=== PATIENT | male | born 1970 | race African-American/Black ===

== ENCOUNTER 2024-05-17 16:35 | Inpatient (IN) | payer MEDICAID ==
[~2024-05-17] VITALS: Ht 167.6 cm; Wt 65.7 kg
[2024-05-17] MEDS ORDERED: LORazepam 2 MG TABLET PO PRN (17:15)
[2024-05-17] MEDS ORDERED: ZOLPIDEM TARTRATE 10 MG TABLET PO PRN (17:15)
[2024-05-17] MEDS ORDERED: HALOPERIDOL 5 MG TABLET PO PRN (17:15)
[2024-05-17 17:58] VITALS: BP 133/76; PULSE 74; RESP 18; TEMP 97; O2SAT 98
[2024-05-17 20:07] VITALS: BP 153/78; PULSE 86; RESP 17; TEMP 98.2; O2SAT 100
[2024-05-18 08:26] LABS: BASOPHILS % (AUTO) 0.5 % (0.0-2.0); EOSINOPHILS % (AUTO) 2.3 % (1.0-6.0); HEMATOCRIT 39.9 % (41-53); HEMOGLOBIN 12.6 g/dL (13.5-17.5); MEAN CORPUSCULAR HEMOGLOBIN 23.5 pg (26.0-34.0); MEAN CORPUSCULAR HGB CONC 31.5 G/dL (31.0-37.0); MEAN CORPUSCULAR VOLUME 75 fL (80-100); MONOCYTES # (AUTO) 0.6 K/uL (0.1-1.0); MONOCYTES % (AUTO) 8.9 % (2.0-9.0); NEUTROPHILS # (AUTO) 3.7 K/uL (1.8-7.7); NEUTROPHILS % (AUTO) 57.3 % (40.0-70.0); PLATELET COUNT (AUTO) 169 K/uL (150-450); RED BLOOD CELL COUNT(AUTO) 5.35 MIL/uL (4.50-5.90); RED CELL DISTRIBUTION WIDTH 14.1 % (11.5-14.5); WHITE BLOOD COUNT (AUTO) 6.5 K/uL (4.5-11.0)
[2024-05-18 08:31] VITALS: BP 125/67; PULSE 71; RESP 18; TEMP 98.3; O2SAT 98
[2024-05-18 08:45] LABS: HEMOGLOBIN A1C 5.9 % (3.8-5.6)
[2024-05-18 09:09] LABS: RBC MORPHOLOGY COMMENT ABNORMAL RBC MORPH
[2024-05-18 09:12] LABS: ALANINE AMINOTRANSFERASE 16 U/L (12-78); ALBUMIN 3.3 g/dL (3.4-5.0); ALKALINE PHOSPHATASE 50 U/L (46-116); ANION GAP 5 mmol/L (8-16); ASPARTATE AMINOTRANSFERASE 24 U/L (15-37); BILIRUBIN,TOTAL 0.9 mg/dL (0.1-1.0); CARBON DIOXIDE 33 mmol/L (22-29); CHLORIDE 104 mmol/L (98-107); CHOLESTEROL 197 mg/dL (131-200); FREE T4 (FREE THYROXINE) 0.75 ng/dL (0.76-1.46); GLOMERULAR FILTR. RATE CALC > 60 mL/min (>60); GLUCOSE,RANDOM 97 mg/dL (70-110); HDL CHOLESTEROL 66 mg/dL (40-60); LDL CHOL (CALC.) 113 mg/dL (0-130); SODIUM SERUM 142 mmol/L (136-145); THYROID STIMULATING HORMONE 0.62 uIU/mL (0.36-3.74); TOTAL PROTEIN, SERUM 6.6 g/dL (6.4-8.2); TRIGLYCERIDES 90 mg/dL (15-150); UREA NITROGEN, BLOOD 14 mg/dL (7-18)
[2024-05-18] MEDS: LITHIUM CARBONATE 300 MG CAPSULE PO SCH (16:33)
[2024-05-18] MEDS: DIVALPROEX SODIUM 500 MG DR TABLET PO SCH (16:33)
[2024-05-18] MEDS: RisperiDONE 1 MG TABLET PO SCH (16:33)
[2024-05-18] MEDS ORDERED: ALBUTEROL SULFATE HFA 90 MCG/PUFF 8 GM INHALER IH PRN (17:15)
[2024-05-18] MEDS ORDERED: OMEPRAZOLE 20 MG CAPSULE PO PRN (17:15)
[2024-05-18] MEDS ORDERED: ONDANSETRON HCL 4 MG TABLET PO PRN (17:15)
[2024-05-18] MEDS ORDERED: LOPERAMIDE HCL 2 MG CAPSULE PO PRN (17:15)
[2024-05-18] MEDS ORDERED: DOCUSATE SODIUM 100 MG CAPSULE PO PRN (17:15)
[2024-05-18] MEDS ORDERED: MAG HYDROX/ALUMINUM HYD/SIMETH ES 30 ML SUSPENSION UDCUP PO PRN (17:15)
[2024-05-18] MEDS ORDERED: CloNIDine HCL 0.1 MG TABLET PO PRN (17:15)
[2024-05-18] MEDS ORDERED: MAGNESIUM HYDROXIDE SUSPENSION 30 ML UDCUP PO PRN (17:15)
[2024-05-18] MEDS ORDERED: BACITRACIN 28 GM OINTMENT TP PRN (17:15)
[2024-05-18] MEDS ORDERED: IBUPROFEN 600 MG TABLET PO PRN (17:15)
[2024-05-18] MEDS ORDERED: PETROLATUM,WHITE 28 GM JELLY TP PRN (17:15)
[2024-05-18] MEDS ORDERED: BENZOCAINE/MENTHOL LOZENGE PO PRN (17:15)
[2024-05-18 20:22] VITALS: BP 128/86; PULSE 71; RESP 16; TEMP 98.3; O2SAT 100
[2024-05-19 08:12] VITALS: BP 107/59; PULSE 62; RESP 18; TEMP 97.8; O2SAT 96
[2024-05-19] MEDS: TraZODone HCL 100 MG TABLET PO SCH (20:15)
[2024-05-19 20:33] VITALS: BP 117/67; PULSE 58; RESP 16; TEMP 97; O2SAT 96
[2024-05-20 08:32] VITALS: RESP 18
[2024-05-20 09:42] LABS: APPEARANCE,URINE CLEAR (CLEAR); BILIRUBIN,URINE NEGATIVE (NEGATIVE); COLOR,URINE LIGHT YELLOW (YELLOW); GLUCOSE, URINE (UA) NEGATIVE (NEGATIVE); KETONES,URINE TRACE mg/dL (NEGATIVE); LEUKOCYTE ESTERASE ,URINE NEGATIVE (NEGATIVE); NITRATE,URINE NEGATIVE (NEGATIVE); OCCULT BLOOD,URINE NEGATIVE (NEGATIVE); PROTEIN,URINE NEGATIVE (NEGATIVE); SPECIFIC GRAVITIY, URINE 1.018 (1.003-1.030); UROBILINOGEN,URINE <=1.0 mg/dL (<=1.0)
[2024-05-20 09:51] LABS: ALCOHOL, URINE DRUG SCREEN NEGATIVE (NEGATIVE); AMPHET/METH SCREEN,URINE NEGATIVE (NEGATIVE); BARBITURATE SCREEN, URINE NEGATIVE (NEGATIVE); BENZODIAZEPINES SCREEN,URINE NEGATIVE (NEGATIVE); CANNABINOID SCREEN,URINE NEGATIVE (NEGATIVE); COCAINE SCREEN,URINE POSITIVE (NEGATIVE); METHADONE SCREEN, URINE NEGATIVE (NEGATIVE); OPIATE SCREEN,URINE NEGATIVE (NEGATIVE); PHENCYCLIDINE SCREEN,URINE NEGATIVE (NEGATIVE)
[2024-05-20 20:27] VITALS: BP 109/69; PULSE 67; RESP 17; TEMP 97.1; O2SAT 99
[2024-05-21 09:04] VITALS: BP 108/67; PULSE 72; RESP 18; TEMP 97.6; O2SAT 100
[2024-05-21 16:53] VITALS: RESP 18
[2024-05-21] MEDS: ACETAMINOPHEN 325 MG TABLET PO PRN (16:53)
[2024-05-21 17:53] VITALS: RESP 17
[2024-05-21 20:24] VITALS: BP 118/76; PULSE 70; RESP 18; TEMP 97.9; O2SAT 99
[2024-05-22 08:33] VITALS: BP 120/79; PULSE 73; RESP 18; TEMP 97.5; O2SAT 98
[2024-05-22 21:07] VITALS: BP 120/76; PULSE 65; RESP 18; TEMP 97.5; O2SAT 100
[2024-05-23 08:11] VITALS: BP 119/60; PULSE 58; RESP 18; TEMP 97.9; O2SAT 100
[2024-05-23] MEDS: RisperiDONE 2 MG TABLET PO SCH (09:22)
[2024-05-23] MEDS: RisperiDONE 3 MG TABLET PO SCH (16:11)
[2024-05-23 20:23] VITALS: BP 129/72; PULSE 74; RESP 18; TEMP 96.9; O2SAT 96
[2024-05-24 08:16] VITALS: BP 132/63; PULSE 66; RESP 17; TEMP 97.9
[2024-05-24 20:51] VITALS: BP 113/68; PULSE 65; RESP 18; TEMP 96.4; O2SAT 99
[2024-05-25 08:54] VITALS: BP 118/83; PULSE 63; RESP 18; TEMP 96.2; O2SAT 99
[2024-05-25 20:35] VITALS: BP 114/75; PULSE 72; RESP 18; TEMP 97.6; O2SAT 99
[2024-05-26 08:14] VITALS: BP 122/59; PULSE 65; RESP 17; TEMP 97.7; O2SAT 97
[2024-05-26] MEDS ORDERED: NALT50TA6 PO (09:00)
[2024-05-26] MEDS ORDERED: MELA5TAB40 PO (09:00)
[2024-05-26] MEDS ORDERED: RISP3TAB77 PO (09:00)
[2024-05-26] MEDS ORDERED: DIVA-112 PO (09:00)
[2024-05-26] MEDS ORDERED: LITH300C3 PO (09:00)
== END 2024-05-26 12:40 | disposition home or self-care (01) | DRG 750 ==
LOC: B2S 17:09
PROVIDERS: ADMIT Psychiatry & Neurology Psychiatry; ATTEND Psychiatry & Neurology Psychiatry
PROC: GZ56ZZZ Individual Psychotherapy, Supportive (ICD-10-PCS; principal; 2024-05-22)
DX: F25.0 Schizoaffective disorder, bipolar type (principal); R45.851 Suicidal ideations; F32.9 Major depressive disorder, single episode, unspecified; F41.9 Anxiety disorder, unspecified; G47.00 Insomnia, unspecified; K59.00 Constipation, unspecified; F14.23 Cocaine dependence with withdrawal; Z91.199 Patient's noncompliance with other medical treatment and regimen due to unspecified reason
CPT/HCPCS: 80053; 80061; 80164; 80307; 81003; 83036; 84439; 84443; 85025

== ENCOUNTER 2024-09-17 06:01 | Inpatient (IN) | payer MEDICAID ==
[~2024-09-17] VITALS: Ht 170.2 cm; Wt 75.8 kg
[~2024-09-17 06:01] MED LIST: DIVA-112 PO; LITH300C3 PO; MELA5TAB40 PO; NALT50TA6 PO; RISP3TAB77 PO
[2024-09-17] MEDS ORDERED: LORazepam 2 MG TABLET PO PRN (06:45)
[2024-09-17] MEDS ORDERED: LOPERAMIDE HCL 2 MG CAPSULE PO PRN (06:45)
[2024-09-17] MEDS ORDERED: ACETAMINOPHEN 325 MG TABLET PO PRN (06:45)
[2024-09-17] MEDS ORDERED: MAG HYDROX/ALUMINUM HYD/SIMETH ES 30 ML SUSPENSION UDCUP PO PRN (06:45)
[2024-09-17] MEDS ORDERED: HALOPERIDOL 5 MG TABLET PO PRN (06:45)
[2024-09-17] MEDS ORDERED: MAGNESIUM HYDROXIDE SUSPENSION 30 ML UDCUP PO PRN (06:45)
[2024-09-17 08:53] VITALS: BP 110/73; PULSE 78; RESP 16; TEMP 97.5; O2SAT 96
[2024-09-17 11:00] VITALS: BP 125/75; PULSE 75; RESP 16; TEMP 97.9; O2SAT 98
[2024-09-17 20:19] VITALS: BP 109/68; PULSE 78; RESP 18; TEMP 97.5; O2SAT 97
[2024-09-18 08:44] VITALS: BP 114/71; PULSE 66; RESP 17; TEMP 98.2; O2SAT 98
[2024-09-18 09:18] LABS: BASOPHILS % (AUTO) 0.6 % (0.0-2.0); EOSINOPHILS % (AUTO) 3.9 % (1.0-6.0); HEMATOCRIT 42.3 % (41-53); HEMOGLOBIN 13.6 g/dL (13.5-17.5); LYMPHOCYTES % (AUTO) 31.5 % (22.0-44.0); MEAN CORPUSCULAR HEMOGLOBIN 23.8 pg (26.0-34.0); MEAN CORPUSCULAR HGB CONC 32.2 G/dL (31.0-37.0); MEAN CORPUSCULAR VOLUME 74 fL (80-100); MONOCYTES # (AUTO) 0.7 K/uL (0.1-1.0); MONOCYTES % (AUTO) 11.4 % (2.0-9.0); NEUTROPHILS # (AUTO) 3.3 K/uL (1.8-7.7); NEUTROPHILS % (AUTO) 52.6 % (40.0-70.0); PLATELET COUNT (AUTO) 168 K/uL (150-450); RED BLOOD CELL COUNT(AUTO) 5.72 MIL/uL (4.50-5.90); RED CELL DISTRIBUTION WIDTH 14.5 % (11.5-14.5); WHITE BLOOD COUNT (AUTO) 6.3 K/uL (4.5-11.0)
[2024-09-18 09:45] LABS: RBC MORPHOLOGY COMMENT ABNORMAL RBC MORPH
[2024-09-18 09:48] LABS: ALANINE AMINOTRANSFERASE 22 U/L (12-78); ALBUMIN 3.4 g/dL (3.4-5.0); ALKALINE PHOSPHATASE 39 U/L (46-116); ANION GAP 9 mmol/L (8-16); ASPARTATE AMINOTRANSFERASE 27 U/L (15-37); BILIRUBIN,TOTAL 0.5 mg/dL (0.1-1.0); CALCIUM, TOTAL 9.1 mg/dL (8.8-10.5); CARBON DIOXIDE 29 mmol/L (22-29); CHLORIDE 104 mmol/L (98-107); CREATININE 1.13 mg/dL (0.60-1.30); GLOMERULAR FILTR. RATE CALC > 60 mL/min (>60); GLUCOSE,RANDOM 86 mg/dL (70-110); POTASSIUM 4.3 mmol/L (3.5-5.1); SODIUM SERUM 142 mmol/L (136-145); TOTAL PROTEIN, SERUM 6.8 g/dL (6.4-8.2); UREA NITROGEN, BLOOD 14 mg/dL (7-18); VALPROIC ACID 13 mcg/mL (50-100)
[2024-09-18] MEDS ORDERED: LOPERAMIDE HCL 2 MG CAPSULE PO PRN (10:15)
[2024-09-18] MEDS ORDERED: NICOTINE 14 MG/24 HOUR PATCH TD PRN (10:15)
[2024-09-18] MEDS ORDERED: ACETAMINOPHEN 325 MG TABLET PO PRN (10:15)
[2024-09-18] MEDS ORDERED: ALBUTEROL SULFATE HFA 90 MCG/PUFF 8 GM INHALER IH PRN (10:15)
[2024-09-18] MEDS ORDERED: MAG HYDROX/ALUMINUM HYD/SIMETH ES 30 ML SUSPENSION UDCUP PO PRN (10:15)
[2024-09-18] MEDS ORDERED: GuaiFENesin/D-METHORPHAN [SUGAR-FREE] 200-20MG/10 ML SYRUP UDCUP PO PRN (10:15)
[2024-09-18] MEDS ORDERED: MAGNESIUM HYDROXIDE SUSPENSION 30 ML UDCUP PO PRN (10:15)
[2024-09-18] MEDS ORDERED: ONDANSETRON 4 MG TABLET PO PRN (10:15)
[2024-09-18] MEDS ORDERED: CloNIDine HCL 0.1 MG TABLET PO PRN (10:15)
[2024-09-18] MEDS ORDERED: IBUPROFEN 400 MG TABLET PO PRN (10:15)
[2024-09-18] MEDS ORDERED: PETROLATUM,WHITE 28 GM JELLY TP PRN (10:15)
[2024-09-18] MEDS: LITHIUM CARBONATE 300 MG CAPSULE PO SCH (10:33)
[2024-09-18] MEDS: DIVALPROEX SODIUM 500 MG DR TABLET PO SCH (10:33)
[2024-09-18] MEDS: NALTREXONE HCL 50 MG TABLET PO SCH (10:33)
[2024-09-18] MEDS: RisperiDONE 3 MG TABLET PO SCH (10:33)
[2024-09-18 10:48] LABS: LITHIUM 0.24 mmol/L (0.60-1.20)
[2024-09-18 20:56] VITALS: BP 107/80; PULSE 72; RESP 18; TEMP 97.9
[2024-09-18] MEDS: MELATONIN 5 MG TABLET PO SCH (21:35)
[2024-09-18] MEDS: ZOLPIDEM TARTRATE 10 MG TABLET PO PRN (23:43)
[2024-09-19 08:27] VITALS: BP 115/72; PULSE 68; RESP 17; TEMP 97.6; O2SAT 99
[2024-09-19 08:54] LABS: APPEARANCE,URINE CLEAR (CLEAR); BILIRUBIN,URINE NEGATIVE (NEGATIVE); COLOR,URINE YELLOW (YELLOW); GLUCOSE, URINE (UA) NEGATIVE (NEGATIVE); KETONES,URINE NEGATIVE (NEGATIVE); LEUKOCYTE ESTERASE ,URINE NEGATIVE (NEGATIVE); NITRATE,URINE NEGATIVE (NEGATIVE); OCCULT BLOOD,URINE NEGATIVE (NEGATIVE); PROTEIN,URINE NEGATIVE (NEGATIVE); SPECIFIC GRAVITIY, URINE 1.023 (1.003-1.030); UROBILINOGEN,URINE <=1.0 mg/dL (<=1.0)
[2024-09-19 09:01] LABS: HEMOGLOBIN A1C 5.4 % (3.8-5.6)
[2024-09-19 09:05] LABS: ALCOHOL, URINE DRUG SCREEN NEGATIVE (NEGATIVE); AMPHET/METH SCREEN,URINE NEGATIVE (NEGATIVE); BARBITURATE SCREEN, URINE NEGATIVE (NEGATIVE); BENZODIAZEPINES SCREEN,URINE NEGATIVE (NEGATIVE); CANNABINOID SCREEN,URINE NEGATIVE (NEGATIVE); COCAINE SCREEN,URINE POSITIVE (NEGATIVE); METHADONE SCREEN, URINE NEGATIVE (NEGATIVE); OPIATE SCREEN,URINE NEGATIVE (NEGATIVE); PHENCYCLIDINE SCREEN,URINE NEGATIVE (NEGATIVE)
[2024-09-19 09:05] LABS: CHOL/HDL RATIO 3.9 (4.2-7.3); THYROID STIMULATING HORMONE 3.01 uIU/mL (0.36-3.74)
[2024-09-19 20:15] VITALS: BP 125/74; PULSE 70; RESP 18; TEMP 97.5; O2SAT 100
[2024-09-20 08:54] VITALS: BP 136/89; PULSE 75; RESP 18; TEMP 97.6; O2SAT 100
[2024-09-20 20:50] VITALS: BP 126/68; PULSE 82; RESP 18; TEMP 97.8
[2024-09-21 10:02] VITALS: BP 149/100; PULSE 77; RESP 17; TEMP 98.1; O2SAT 98
[2024-09-21 12:07] VITALS: BP 144/82; PULSE 77; RESP 16; TEMP 98.1; O2SAT 100
[2024-09-21 20:11] VITALS: BP 138/98; PULSE 65; RESP 18; TEMP 97.7; O2SAT 100
[2024-09-22 08:39] VITALS: BP 114/66; PULSE 70; RESP 18; TEMP 97.2; O2SAT 97
[2024-09-22 20:20] VITALS: BP 136/97; PULSE 65; RESP 18; TEMP 97.2; O2SAT 99
[2024-09-23 09:04] VITALS: RESP 16
[2024-09-23] MEDS: DOCUSATE SODIUM 100 MG CAPSULE PO PRN (10:18)
[2024-09-24 08:10] VITALS: BP 120/69; PULSE 76; RESP 17; TEMP 97.6; O2SAT 97
[2024-09-24 20:15] VITALS: BP 102/67; PULSE 75; RESP 18; TEMP 97.8; O2SAT 98
[2024-09-25 09:02] VITALS: RESP 16
[2024-09-25 20:58] VITALS: RESP 18
[2024-09-26 08:08] VITALS: BP 117/75; PULSE 78; RESP 16; TEMP 97.3; O2SAT 96
[2024-09-26 21:32] VITALS: BP 110/68; PULSE 65; RESP 18; TEMP 97.5; O2SAT 99
[2024-09-27 08:11] VITALS: BP 111/61; PULSE 66; RESP 17; TEMP 97.5; O2SAT 100
[2024-09-27] MEDS ORDERED: LITH300C3 PO (16:15)
[2024-09-27] MEDS ORDERED: RISP3TAB77 PO (16:15)
[2024-09-27] MEDS ORDERED: MELA5TAB40 PO (16:15)
[2024-09-27] MEDS ORDERED: NALT50TA33 PO (16:15)
[2024-09-27] MEDS ORDERED: DIVA-112 PO (16:15)
== END 2024-09-27 17:00 | disposition home or self-care (01) | DRG 750 ==
LOC: B3A 08:51
PROVIDERS: ADMIT Psychiatry & Neurology Psychiatry; ATTEND Psychiatry & Neurology Psychiatry
PROC: GZHZZZZ Group Psychotherapy (ICD-10-PCS; principal; 2024-09-20)
DX: F25.0 Schizoaffective disorder, bipolar type (principal); R45.851 Suicidal ideations; F10.10 Alcohol abuse, uncomplicated; E66.9 Obesity, unspecified; F32.A Depression, unspecified; F41.9 Anxiety disorder, unspecified; G47.00 Insomnia, unspecified; K59.00 Constipation, unspecified; Z79.899 Other long term (current) drug therapy; Z59.00 Homelessness unspecified; F14.90 Cocaine use, unspecified, uncomplicated; F15.90 Other stimulant use, unspecified, uncomplicated; Z68.26 Body mass index [BMI] 26.0-26.9, adult
CPT/HCPCS: 80053; 80061; 80164; 80178; 80307; 81003; 83036; 84443; 85025